=== PATIENT | female | born 1990 | race Two or more races ===

== ENCOUNTER 2023-01-20 19:01 | Emergency (ER) | payer OTHER ==
[~2023-01-20] VITALS: Ht 167.6 cm; Wt 92.8 kg
[2023-01-20 22:26] VITALS: BP 112/66
[2023-01-20] MEDS ORDERED: KETOROLAC TROMETH 30 MG/ML 1ML VIAL IM ONE (23:30)
== END 2023-01-20 23:46 | disposition home or self-care (01) ==
LOC: ER 19:08
DX: M54.6 Pain in thoracic spine (principal)
CPT/HCPCS: J1885